=== PATIENT | male | born 1955 | race Caucasian/White ===

== ENCOUNTER 2019-09-08 09:34 | Emergency (ER) | payer OTHER, BC ==
--- NOTE | 2019-09-08 10:34 | EDM.PDOC ---
ED HPI GENERAL MEDICAL PROBLEM - General Chief Complaint: Upper Extremity Injury/Pain Stated Complaint: RT HAND INJURY Time Seen by Provider: 09/08/19 10:34 - History of Present Illness INITIAL COMMENTS - FREE TEXT/NARRATIVE: 64-year-old male presents the emergency room with a right forearm and hand injury. The patient was at work using an abrasive straps trying to [employer] power takeoff unit. His glove got caught and twisted his arm around this. He has a laceration on his hand and a lot of discomfort on the top of his hand and into his forearm. If the patient tries to do much with his hand it causes a lot of discomfort in his forearm and in the hand area itself. Patient denies any other injury with this most unfortunate event. Patient is uncertain of his last tetanus shot. Patient has a history of type 2 diabetes Right Hand Pain Score (Numeric/FACES): 8 - Related Data Allergies Allergy/AdvReac Type Severity Reaction Status Date / Time No Known Allergies Allergy Verified 09/08/19 10:06 Home Meds: Home Meds Aspirin [Adult Low Dose Aspirin EC] 81 mg PO BEDTIME 09/08/19 [History] Bifidobacter. Bifidum/B.Longum [Florajen Bifidoblend] 1 tab PO DAILY 09/08/19 [ History] Dapagliflozin Propanediol [Farxiga] 5 mg PO DAILY 09/08/19 [History] Fenofibrate Nanocrystallized [Fenofibrate] 145 mg PO DAILY 09/08/19 [History] Losartan/Hydrochlorothiazide [Losartan-HCTZ 100-12.5 MG] 1 tab PO DAILY [History] Omeprazole 20 mg PO BEDTIME 09/08/19 [History] Pravastatin [Pravachol] 40 mg PO BEDTIME 09/08/19 [History] cephALEXin [Keflex] 500 mg PO Q8H #21 cap 09/08/19 [Rx] metFORMIN [Glucophage XR] 500 mg PO BID 09/08/19 [History] Past Medical History HEENT History: Reports: Other (See Below) Other HEENT History: wears glasses Cardiovascular History: Reports: High Cholesterol, Hypertension Respiratory History: Reports: Other (See Below) Other Respiratory History: emphysema Gastrointestinal History: Reports: GERD Endocrine/Metabolic History: Reports: Diabetes, Type II - Infectious Disease History Infectious Disease History: Reports: Chicken Pox, Measles Social & Family History - Family History Family Medical History: Noncontributory - Tobacco Use Smoking Status *Q: Current Every Day Smoker Years of Tobacco use: 30 Packs/Tins Daily: 0.5 - Caffeine Use Caffeine Use: Reports: Coffee - Recreational Drug Use Recreational Drug Use: No Review of Systems - Review of Systems Review Of Systems: See Below Constitutional: Reports: No Symptoms Respiratory: Reports: No Symptoms Cardiovascular: Reports: No Symptoms GI/Abdominal: Reports: No Symptoms Musculoskeletal: Reports: Arm Pain, Hand Pain ED EXAM, GENERAL - Physical Exam Exam: See Below General Appearance: Alert, No Apparent Distress Head: Atraumatic, Normocephalic Respiratory/Chest: No Respiratory Distress, Lungs Clear, Normal Breath Sounds Cardiovascular: Regular Rate, Rhythm, No Edema, No Murmur Extremities: Other (Emanation of his right forearm shows no significant deformity he is got an area of fullness on the posterior aspect just distal to the area of the olecranon bursa patient states this is been there for many many years. It does not cause him any discomfort. The patient can supinate and pronate his hand without difficulty flexion and extension causes discomfort on the top of his hand and into his forearm. Patient has good range of motion of his wrist however this is limited by discomfort. Neurovascular status of the digits appears to be normal. He has a small laceration on the flexor surface of his hand over the thenar eminence this will require a few stitches) Neurological: Alert, Oriented, Normal Cognition ED TRAUMA EXTREMITY PROCEDURES - Laceration/Wound Repair Right Hand Lac/Wound Length In cm: 1.5 Appearance: Linear Distal NVT: Neuro & Vascular Intact Anesthetic Type: Local Local Anesthesia - Lidocaine (Xylocaine): 1% Plain Local Anesthetic Volume: 2cc Skin Prep: Providone-Iodine (Betadine), Saline Exploration/Debridement/Repair: Wound Explored, In a Bloodless Field, Explored to Base Closed With: Sutures Suture Size: 3-0 # of Sutures: 3 Suture Type: Nylon Tetanus Status Addressed: Yes Complications: No (Tetanus status was updated) Course - Vital Signs Last Recorded V/S: Last Vital Signs Temp 36.1 C 09/08/19 10:03 Pulse 98 09/08/19 10:03 Resp 19 09/08/19 10:03 BP 136/77 09/08/19 10:03 Pulse Ox 97 09/08/19 10:03 - Orders/Labs/Meds Orders: Active Orders 24 hr Category Date Time Status Vaccines to be Administered [RC] PER UNIT ROUTINE Care 09/08/19 10:39 Active Meds: Medications Discontinued Medications Generic Name Dose Route Start Last Admin Trade Name Eliane PRN Reason Stop Dose Admin Diphtheria/Tetanus/Acell Pertussis 0.5 ml 09/08/19 10:39 09/08/19 11:33 Adacel IM 09/08/19 10:40 0.5 ml .ONCE ONE Administration Lidocaine HCl 10 ml 09/08/19 11:28 09/08/19 11:33 Xylocaine 1% INJECT 09/08/19 11:29 10 ml ONETIME ONE Administration Lidocaine HCl Confirm 09/08/19 11:29 09/08/19 11:34 Xylocaine 1% Administered 09/08/19 11:30 Not Given Dose 10 ml .ROUTE .STK-MED ONE - Re-Assessments/Exams Free Text/Narrative Re-Assessment/Exam: 09/08/19 11:33 X-ray examination of his forearm and hand is negative for any acute fracture dislocation. He does have some radiodensities in the posterior aspect of his proximal forearm as described in the physical exam. The patient denies any prior injury to this area and states these of been there for years. Departure - Departure Time of Disposition: 12:27 Disposition: Home, Self-Care 01 Clinical Impression: Contusion of right hand, Laceration of right hand, Contusion of right forearm - Discharge Information Referrals: Kala Hyatt PA-C [Primary Care Provider] - Forms: ED Department Discharge, ED Return to Work/School Form Additional Instructions: Return to the emergency room with any questions problems or worsening symptoms. Keep the area absolutely clean and dry for the next 48 hours then you may let water gently roll over the area and then dab dry no scrubbing. Take the antibiotics as directed 1 3 times a day for a week. Follow-up with labor and industry physician or your regular provider the middle of this next week for recheck Suture removal in 10 days. Be very cautious after the sutures are removed because he will have minimal skin strength at that time and the wound may gape open because it is a thick skin laceration and be more prone to catching on things. Sepsis Event Note (ED) - Evaluation Sepsis Screening Result: No Definite Risk - Focused Exam Vital Signs: Vital Signs Temp Pulse Resp BP Pulse Ox 09/08/19 10:03 36.1 C 98 19 136/77 97 - My Orders Last 24 Hours: My Active Orders 09/08/19 10:39 Vaccines to be Administered [RC] PER UNIT ROUTINE - Assessment/Plan Last 24 Hours: My Active Orders 09/08/19 10:39 Vaccines to be Administered [RC] PER UNIT ROUTINE
[2019-09-08] MEDS ORDERED: Diphtheria,Pertussis(Acell),Tetanus Vaccine 0.5 ML Syringe IM ONE (10:39)
--- NOTE | 2019-09-08 11:07 | CR ---
Right forearm: 2 views of the right forearm were obtained. Radiopacities are projected superficially within the posterior proximal forearm. These findings either represent foreign body or dystrophic calcifications. No acute fracture or other bony abnormality is appreciated. Soft tissue swelling is noted. Impression: 1. Presumed foreign bodies as noted above. If patient has no history of foreign bodies, this could represent dystrophic calcification. 2. Soft tissue swelling. 3. No acute osseous finding is seen. Diagnostic code #3 This report was dictated in [facility]
--- NOTE | 2019-09-08 11:08 | CR ---
Right hand: 4 views of the right hand were obtained. Soft tissue swelling is noted. Small radiopacity is projected superficially with within the posterior wrist possibly due to small foreign body. Joint spaces are maintained within the hand. No acute fracture, dislocation or other bony abnormality is seen. Impression: 1. Small radiopacity as noted above. 2. No acute bony abnormality is seen. Diagnostic code #2 This report was dictated in MDT
[2019-09-08] MEDS ORDERED: Lidocaine 1% 10 ML MDV INJECT ONE (11:28)
[2019-09-08] MEDS ORDERED: Lidocaine 1% 10 ML MDV ONE (11:29)
== END 2019-09-08 12:45 | disposition home or self-care (01) ==
LOC: JD.ED 09:34
DX: S61.411A Laceration without foreign body of right hand, initial encounter (principal); S50.11XA Contusion of right forearm, initial encounter; E78.00 Pure hypercholesterolemia, unspecified; I10 Essential (primary) hypertension; E11.9 Type 2 diabetes mellitus without complications; K21.9 Gastro-esophageal reflux disease without esophagitis; F17.210 Nicotine dependence, cigarettes, uncomplicated; Z79.84 Long term (current) use of oral hypoglycemic drugs; Z23 Encounter for immunization; Z79.82 Long term (current) use of aspirin; Z79.899 Other long term (current) drug therapy; X50.1XXA Overexertion from prolonged static or awkward postures, initial encounter
CPT/HCPCS: 12001; 73090; 73130; 90471; 90715; 99283; J2001

== ENCOUNTER 2023-12-23 07:48 | Day surgery (SDC) | payer BC ==
[~2023-12-23 07:48] MED LIST: Lidocaine 1% 5 ML VIAL ONE; Midazolam 1 MG/ML 2 ML SDV ONE; Propofol 200 MG/20 ML SDV ONE; Sodium Chloride 0.9% 10 ML Syringe FLUSH PRN; Sodium Chloride 0.9% 10 ML Syringe FLUSH SCH; fentaNYL 100 MCG/2 ML SDV ONE
[2023-12-23] MEDS ORDERED: Ropivacaine 0.5% 5 MG/ML 30 ML SDV ONE (07:52)
[2023-12-23] MEDS ORDERED: EPINEPHrine 1 MG/ML SDV ONE (07:52)
[2023-12-23] MEDS ORDERED: Dexamethasone 4 MG/ML 5 ML MDV ONE (07:52)
[2023-12-23] MEDS ORDERED: ceFAZolin 2 GM Vial ONE (07:55)
[2023-12-23] MEDS: Lactated Ringers 1,000 ML IV SCH (08:15)
[2023-12-23] MEDS: Pregabalin 25 MG Cap PO SCH (08:45)
[2023-12-23] MEDS: Acetaminophen 325 MG Tab PO SCH (08:45)
[2023-12-23] MEDS: oxyCODONE ER 10 MG TAB.ER PO SCH (08:45)
[2023-12-23] MEDS ORDERED: Lactated Ringers 1,000 ML ONE (10:04)
[2023-12-23] MEDS ORDERED: HYDROmorphone 0.5 MG/0.5 ML Syringe IVPUSH PRN (10:58)
[2023-12-23] MEDS ORDERED: fentaNYL 100 MCG/2 ML SDV IVPUSH PRN (10:58)
[2023-12-23] MEDS ORDERED: Ondansetron 4 MG/2 ML SDV IVPUSH PRN (10:58)
[2023-12-23] MEDS: Vancomycin 1 GM SDV ONE (11:01)
[2023-12-23] MEDS: Tranexamic Acid 1,000 MG/10 ML Vial ONE (11:01)
[2023-12-23] MEDS: Morphine 8 MG, EPINEPHrine 0.3 MG, Cefuroxime 750 MG, Ketorolac 30 MG, Sodium Chloride ... PRN (11:07)
[2023-12-23] MEDS ORDERED: Ketorolac 15 MG/ML SDV ONE (11:21)
[2023-12-23] MEDS: oxyCODONE 5 MG Tab PO PRN (14:26)
== END 2023-12-23 14:50 | disposition home or self-care (01) ==
LOC: JD.SDS 07:48
PROVIDERS: ATTEND Orthopaedic Surgery
DX: M17.12 Unilateral primary osteoarthritis, left knee (principal); I10 Essential (primary) hypertension; E78.00 Pure hypercholesterolemia, unspecified; K21.9 Gastro-esophageal reflux disease without esophagitis; E11.42 Type 2 diabetes mellitus with diabetic polyneuropathy; F17.210 Nicotine dependence, cigarettes, uncomplicated; Z79.82 Long term (current) use of aspirin; Z79.84 Long term (current) use of oral hypoglycemic drugs; Z79.899 Other long term (current) drug therapy
CPT/HCPCS: 00142; 64447; 73560-26-LT; 73560-LT; 97110-GP; 97161-GP; A9270-GY; C1713; C1776; J0171; J0690; J0697; J1100; J1885; J2250; J2270; J2704; J2795; J3010; J3370; J3490; J7120